=== PATIENT | male | born 1965 | race Two or more races ===

== ENCOUNTER 2022-12-12 09:35 | Emergency (ER) | payer MEDICAID ==
[~2022-12-12] VITALS: Ht 154.9 cm; Wt 53.6 kg
[~2022-12-12 09:35] MED LIST: amiodarone 50MG/ML inj IV ONE; epiNEPHrine 1 mg/ml inj ONE; magnesium sulf 1 GM/2 ML ONE; sodium bicarbonate (8.4%) inj. 1 MEQ/ML ML ONE
[2022-12-12] MEDS ORDERED: propofol 1000mg/100ml bottle 0 ML IV ONE (09:41)
--- NOTE | 2022-12-12 09:57 | NUR ---
PTS FAMILY NOTIFIED THAT PT IS CURRENTLY HAVING CPR PERFORMED, THEY ARE ON THEIR WAY IMMEDIATELY FROM [place] 2 HOURS AWAY. DAUGHTER SANJUANITA SPEAKS CUBAN AND WILL INTERPRET FOR HER MOTHER WHO DOES NOT. [phone]
[2022-12-12] MEDS ORDERED: NOREPINEPHRINE 8 MG/250 ML IV ONE (09:59)
[2022-12-12] MEDS ORDERED: NS IV ONE (09:59)
[2022-12-12] MEDS ORDERED: tenecteplase 50mg kit IV ONE ×2 (10:00→10:55)
[2022-12-12] MEDS ORDERED: NORepinephrine 8mg/ 250ml NS 250 ML IV SCH (10:00)
[2022-12-12] MEDS ORDERED: heparin 10,000 units/1 ML INJ IV ONE (10:00)
[2022-12-12 10:08] LABS: BASOPHILS % (AUTO) 0.1 % (0-1); EOSINOPHILS % (AUTO) 0.2 % (0-6); MONOCYTES # (AUTO) 0.3 X10'3 (0-0.9)
[2022-12-12 10:11] LABS: HEMATOCRIT 23.6 % (42.0-52.0); LYMPHOCYTES # (AUTO) 6.1 X10'3 (1.1-4.8); LYMPHOCYTES % (AUTO) 33.2 % (21-51); MEAN CORPUSCULAR HGB CONC 29.1 g/dL (33.0-36.5); MEAN PLATELET VOLUME 9.5 FL (7.4-10.4); MONOCYTES % (AUTO) 1.7 % (2-12); NEUTROPHILS # (AUTO) 11.8 X10'3 (1.8-7.7); NEUTROPHILS % (AUTO) 64.8 % (42-75); PLATELET COUNT 331 X10'3 (140-440); RED BLOOD COUNT 2.29 X10'6 (4.70-6.10); RED CELL DISTRIBUTION WIDTH 16.4 % (11.5-14.5); WHITE BLOOD COUNT 18.2 X10'3 (4.5-11.0)
--- NOTE | 2022-12-12 10:12 | NUR ---
TOD 1018
[2022-12-12 10:22] LABS: HEMOGLOBIN 6.9 g/dl (14.0-17.9)
--- NOTE | 2022-12-12 10:53 | NUR ---
[facility] called at [phone]. Referral # [id number] Addendum: 12/12/22 at 1054 by [email or web address] Pt deemed not a candidate for tissue and organ donation
--- NOTE | 2022-12-12 11:44 | NUR ---
Confirmed with Dr. Blood this is not a coronors case. Called son and family ok with transfer to [facility] in [facility] to arrange transport. Son with inform mother when she has available cell service.
--- NOTE | 2022-12-12 11:52 | NUR ---
Gina from [facility] contacted for patient tranport.
--- NOTE | 2022-12-12 12:56 | NUR ---
[facility] picked up Pt at [id number]. Advised transporter from [facility] that family could call or come in if they had any questions
[2022-12-12 14:05] LABS: ANISOCYTOSIS 1+; PLATELET ESTIMATE NORMAL; TOTAL CELLS COUNTED 100
[2022-12-12 14:07] LABS: STOMATOCYTES 1+
== END 2022-12-12 13:00 ==
LOC: ER 09:35
DX: A41.9 Sepsis, unspecified organism (principal); I46.9 Cardiac arrest, cause unspecified; E11.22 Type 2 diabetes mellitus with diabetic chronic kidney disease; I13.2 Hypertensive heart and chronic kidney disease with heart failure and with stage 5 chronic kidney disease, or end stage renal disease; R21 Rash and other nonspecific skin eruption; N18.6 End stage renal disease; I25.10 Atherosclerotic heart disease of native coronary artery without angina pectoris; I11.0 Hypertensive heart disease with heart failure; I50.9 Heart failure, unspecified; J44.9 Chronic obstructive pulmonary disease, unspecified; G89.29 Other chronic pain; M10.9 Gout, unspecified; Z88.5 Allergy status to narcotic agent; Z99.2 Dependence on renal dialysis; Z88.8 Allergy status to other drugs, medicaments and biological substances; Z89.412 Acquired absence of left great toe
CPT/HCPCS: 36415; 85007; 85025; 92950; 92960; 96374; 99285; J0171; J0282; J3101; J3475; J3490; J2704